=== PATIENT | male | born 1990 | race Hispanic/Latino ===

== ENCOUNTER 2020-06-05 20:13 | Emergency (ER) | payer BC ==
[2020-06-05] MEDS ORDERED: Indomethacin 25 MG Cap PO ONE (20:48)
--- NOTE | 2020-06-05 20:52 | EDM.PDOC ---
ED HPI GENERAL MEDICAL PROBLEM - General Chief Complaint: Lower Extremity Injury/Pain Stated Complaint: LEG SWELLING L Time Seen by Provider: 06/05/20 20:25 Source of Information: Reports: Patient History Limitations: Reports: No Limitations - History of Present Illness INITIAL COMMENTS - FREE TEXT/NARRATIVE: This is a 29-year-old male. Onset Monday with left great toe pain and is migrated into his left ankle now. He says he has a history of gout in the past but he has not had it in about 3 years but he started eating red meat again and now is having this flareup. He says the left great toe is nontender is just his left ankle that is painful and mild swelling. He denies any injury to that left ankle. Normally he takes some indomethacin within 24 hours the gout attack usually resolves. Denies any fever or chills. He denies any redness of the left ankle. - Related Data Home Meds: Home Meds Indomethacin 50 mg PO TID PRN #30 capsule 06/05/20 [Rx] Past Medical History Cardiovascular History: Reports: Hypertension Musculoskeletal History: Reports: Gout Social & Family History - Family History Family Medical History: Noncontributory - Tobacco Use Tobacco Use Status *Q: Current Every Day Tobacco User Years of Tobacco use: 12 Packs/Tins Daily: 0.5 Review of Systems - Review of Systems Review Of Systems: See Below Constitutional: Denies: Chills, Fever Eyes: Reports: No Symptoms Ears: Reports: No Symptoms Nose: Reports: No Symptoms Mouth/Throat: Reports: No Symptoms Respiratory: Denies: Shortness of Breath, Cough Cardiovascular: Reports: No Symptoms GI/Abdominal: Reports: No Symptoms Genitourinary: Reports: No Symptoms Musculoskeletal: Reports: Other (Left ankle pain) Skin: Denies: Rash, Erythema Neurological: Reports: No Symptoms Psychiatric: Reports: No Symptoms ED EXAM, GENERAL - Physical Exam Exam: See Below Exam Limited By: No Limitations General Appearance: Alert, WD/WN, No Apparent Distress Eye Exam: Bilateral Eye: Normal Inspection Ears: Normal External Exam Throat/Mouth: Normal Voice, No Airway Compromise Head: Atraumatic, Normocephalic Neck: Supple Respiratory/Chest: No Respiratory Distress Back Exam: Full Range of Motion Extremities: Other (Left ankle is tender on palpation and has minimal swelling compared to the right, there is no erythema noted, he does complain of pain with movement of that ankle and weightbearing. His left great toe is nontender and there is no redness or swelling noted.) Neurological: Alert, Oriented Psychiatric: Normal Affect, Normal Mood Skin Exam: Warm, Dry Course - Vital Signs Last Recorded V/S: Last Vital Signs Temp 97.0 F 06/05/20 20:36 Pulse 72 06/05/20 20:36 Resp 16 06/05/20 20:36 BP 150/102 H 06/05/20 20:36 Pulse Ox 96 06/05/20 20:36 - Orders/Labs/Meds Labs: Laboratory Tests 06/05/20 06/05/20 Range/Units 21:10 21:10 WBC 11.59 H (4.23-9.07) K/mm3 RBC 5.27 (4.63-6.08) M/mm3 Hgb 15.0 (13.7-17.5) gm/dl Hct 45.4 (40.1-51.0) % MCV 86.1 (79.0-92.2) fl MCH 28.5 (25.7-32.2) pg MCHC 33.0 (32.2-35.5) g/dl RDW Std Deviation 39.6 (35.1-43.9) fL Plt Count 352 H (163-337) K/mm3 MPV 8.6 L (9.4-12.3) fl Neut % (Auto) 69.9 H (34.0-67.9) % Lymph % (Auto) 20.1 L (21.8-53.1) % [place] % (Auto) 7.1 (5.3-12.2) % Eos % (Auto) 2.4 (0.8-7.0) Baso % (Auto) 0.3 (0.1-1.2) % Neut # (Auto) 8.11 H (1.78-5.38) K/mm3 Lymph # (Auto) 2.33 (1.32-3.57) K/mm3 [place] # (Auto) 0.82 (0.30-0.82) K/mm3 Eos # (Auto) 0.28 (0.04-0.54) K/mm3 Baso # (Auto) 0.03 (0.01-0.08) K/mm3 Manual Slide Review Normal smear Sodium 136 (136-145) mEq/L Potassium 3.5 (3.5-5.1) mEq/L Chloride 101 (98-107) mEq/L Carbon Dioxide 24 (21-32) mEq/L Anion Gap 14.5 (5-15) BUN 12 (7-18) mg/dL Creatinine 1.0 (0.7-1.3) mg/dL Est Cr Clr Drug Dosing 133.82 mL/min Estimated GFR (MDRD) > 60 (>60) mL/min BUN/Creatinine Ratio 12.0 L (14-18) Glucose 93 (74-106) mg/dL Calcium 8.8 (8.5-10.1) mg/dL Total Bilirubin 0.4 (0.2-1.0) mg/dL AST 28 (15-37) U/L ALT 48 (16-63) U/L Alkaline Phosphatase 65 (46-116) U/L Total Protein 8.0 (6.4-8.2) g/dl Albumin 3.8 (3.4-5.0) g/dl Globulin 4.2 gm/dL Albumin/Globulin Ratio 0.9 L (1-2) Meds: Medications Discontinued Medications Generic Name Dose Route Start Last Admin Trade Name Freq PRN Reason Stop Dose Admin Indomethacin 50 mg 06/05/20 20:48 Indocin PO 06/05/20 20:49 ONETIME ONE - Re-Assessments/Exams Free Text/Narrative Re-Assessment/Exam: 06/05/20 22:18 I spoke to the patient regarding his lab results. I think he has had acute gout attack of his left great toe and left ankle. I want to put him on indomethacin 3 times a day for the next few days he knows that once the pain resolves he is to continue the indomethacin for at least 24 hours. I have also encouraged him to cut back on the red meat since that is what is causing his problem presently. Departure - Departure Time of Disposition: 22:19 Disposition: Home, Self-Care 01 Condition: Fair Clinical Impression: Pain of left great toe Gout attack Qualifiers: Gout site: ankle Gout etiology: unspecified cause Laterality: left Qualified Code(s): M10.9 - Gout, unspecified Left ankle pain Qualifiers: Chronicity: acute Qualified Code(s): M25.572 - Pain in left ankle and joints of left foot - Discharge Information *PRESCRIPTION DRUG MONITORING PROGRAM REVIEWED*: Not Applicable *COPY OF PRESCRIPTION DRUG MONITORING REPORT IN PATIENT CHAR: Not Applicable Prescriptions: Indomethacin 50 mg PO TID PRN #30 capsule PRN Reason: Pain Instructions: Low-Purine Eating Plan Referrals: PCP,None [Primary Care Provider] - Forms: ED Department Discharge Additional Instructions: Take the Indomethacin three times a day with meals, once the pain has resolved continue taking the medication for an additional 24 hours, cut back on your red meat consumption, follow up with your primary care provider for recheck this coming week, return to the ER as needed. Sepsis Event Note (ED) - Evaluation Sepsis Screening Result: No Definite Risk - Focused Exam Vital Signs: Vital Signs Temp Pulse Resp BP Pulse Ox 20 20:36 97.0 F 72 16 150/102 H 96
== END 2020-06-05 22:40 | disposition home or self-care (01) ==
LOC: JD.ED 20:13
DX: M10.9 Gout, unspecified (principal); I10 Essential (primary) hypertension; F17.210 Nicotine dependence, cigarettes, uncomplicated
CPT/HCPCS: 36415; 80053; 85025; 99283; A9270

== ENCOUNTER 2022-04-28 09:25 | Day surgery (SDC) | payer BC ==
[~2022-04-28 09:25] MED LIST: Lactated Ringers 1,000 ML IV SCH; Lidocaine 1%/Sod Bicarbonate in NS 8.4% 1 ML Syringe IDERM PRN; Sodium Chloride 0.9% 10 ML Syringe FLUSH PRN; Sodium Chloride 0.9% 10 ML Syringe FLUSH SCH
[2022-04-28] MEDS ORDERED: Bupivacaine 0.25% 10 ML SDV ONE (09:48)
[2022-04-28] MEDS ORDERED: Propofol 200 MG/20 ML SDV ONE ×3 (10:45→12:25)
[2022-04-28] MEDS ORDERED: Lidocaine 1% 4 ML ONE (10:45)
[2022-04-28] MEDS ORDERED: Midazolam 1 MG/ML 2 ML SDV ONE ×2 (10:46→11:08)
[2022-04-28] MEDS ORDERED: fentaNYL 100 MCG/2 ML SDV ONE (10:46)
[2022-04-28] MEDS ORDERED: EPINEPHrine 1 MG/ML SDV ONE (10:50)
[2022-04-28] MEDS ORDERED: Ropivacaine 0.5% 5 MG/ML 30 ML SDV ONE (10:50)
[2022-04-28] MEDS ORDERED: ceFAZolin 2 GM Vial ONE (10:54)
[2022-04-28] MEDS ORDERED: Lidocaine 1% 5 ML VIAL ONE (11:17)
[2022-04-28] MEDS ORDERED: ePHEDrine 50 MG/ML SDV ONE (11:28)
[2022-04-28] MEDS ORDERED: Lactated Ringers 1,000 ML ONE (11:34)
[2022-04-28] MEDS ORDERED: diphenhydrAMINE 50 MG/ML SDV IVPUSH PRN (11:52)
[2022-04-28] MEDS ORDERED: Ondansetron 4 MG/2 ML SDV IVPUSH PRN (11:52)
[2022-04-28] MEDS ORDERED: fentaNYL 100 MCG/2 ML SDV IVPUSH PRN (11:52)
[2022-04-28] MEDS ORDERED: Acetaminophen/HYDROcodone 325-5 MG Tab PO ONE (14:00)
== END 2022-04-28 15:25 | disposition home or self-care (01) ==
LOC: JD.SDS 09:25
PROVIDERS: ATTEND Orthopaedic Surgery
DX: S86.812A Strain of other muscle(s) and tendon(s) at lower leg level, left leg, initial encounter (principal); I10 Essential (primary) hypertension; R73.03 Prediabetes; M1A.9XX1 Chronic gout, unspecified, with tophus (tophi); Z79.899 Other long term (current) drug therapy; Z87.891 Personal history of nicotine dependence
CPT/HCPCS: 27380; 76000; J0171; J0690; J2250; J2704; J2795; J3010; J7120; 01320; 64450; 76942; J3490

== ENCOUNTER 2022-12-09 23:49 | Emergency (ER) | payer BC, MEDICAID ==
[2022-12-10] MEDS ORDERED: Sodium Chloride 0.9% 1,000 ML IV ONE ×2 (00:09→01:39)
[2022-12-10] MEDS ORDERED: Ondansetron 4 MG in Sodium Chloride 0.9% 50 ML IV ONE (00:09)
[2022-12-10] MEDS ORDERED: Morphine 4 MG/ML Syringe IVPUSH ONE (00:09)
[2022-12-10 00:45] LABS: BASOPHILS ABSOLUTE AUTO 0.02 K/mm3 (0.01-0.08); BASOPHILS PERCENT AUTO 0.2 % (0.1-1.2); EOSINOPHILS ABSOLUTE AUTO 0.05 K/mm3 (0.04-0.54); EOSINOPHILS PERCENT AUTO 0.4 (0.8-7.0); HEMATOCRIT 40.4 % (40.1-51.0); IMMATURE GRAN ABSOLUTE AUTO 0.22 K/mm3 (0.00-0.10); IMMATURE GRAN PERCENT AUTO 1.7 % (<=1.0); LYMPHOCYTES ABSOLUTE AUTO 0.81 K/mm3 (1.32-3.57); LYMPHOCYTES PERCENT AUTO 6.3 % (21.8-53.1); MEAN CORPUSCULAR HEMOGLOBIN 28.2 pg (25.7-32.2); MEAN CORPUSCULAR HGB CONC 34.7 g/dl (32.2-35.5); MEAN CORPUSCULAR VOLUME 81.3 fl (79.0-92.2); MEAN PLATELET VOLUME 10.6 fl (9.4-12.3); MONOCYTES ABSOLUTE AUTO 1.16 K/mm3 (0.30-0.82); NEUTROPHILS ABSOLUTE AUTO 10.59 K/mm3 (1.78-5.38); NEUTROPHILS PERCENT AUTO 82.4 % (34.0-67.9); PLATELET COUNT,PLT 286 K/mm3 (163-337); RED BLOOD CELL COUNT 4.97 M/mm3 (4.63-6.08); WHITE BLOOD CELL COUNT,WBC 12.85 K/mm3 (4.23-9.07)
[2022-12-10 01:11] LABS: A/G RATIO 0.5 (1-2); ALBUMIN 2.7 g/dl (3.4-5.0); ANION GAP 16.4 (5-15); BUN/CREATININE RATIO 9.6 (14-18); CALCIUM 8.9 mg/dL (8.5-10.1); EST CRCL DRUG DOSING (CG) 48.22 mL/min
[2022-12-10 01:15] LABS: LACTIC ACID 1.2 mmol/L (0.4-2.0)
[2022-12-10 01:19] LABS: CREATININE 2.7 mg/dL (0.7-1.3); POTASSIUM,K 3.4 mEq/L (3.5-5.1); PROTEIN TOTAL,TP 8.1 g/dl (6.4-8.2)
[2022-12-10] MEDS ORDERED: Tamsulosin 0.4 MG Cap.ER PO ONE (02:29)
[2022-12-10 02:37] LABS: HEPATITIS C AB NEGATIVE (NEGATIVE)
[2022-12-12 08:49] LABS: HEPATITIS B SURFACE AG NONREACTIVE (NONREACTIVE)
== END 2022-12-10 03:14 | disposition home or self-care (01) ==
LOC: JD.ED 23:49
DX: N20.0 Calculus of kidney (principal); N17.9 Acute kidney failure, unspecified; R17 Unspecified jaundice; I10 Essential (primary) hypertension; Z79.01 Long term (current) use of anticoagulants
CPT/HCPCS: 36415; 70450; 74176; 80053; 83605; 85025; 86317; 86803; 87040; 87340; 96361; 96365; 96375; 99284; A9270; J2270; J2405; J3490; J7030; 99285